=== PATIENT | female | born 1995 | race Two or more races ===

== ENCOUNTER 2019-04-21 14:49 | Emergency (ER) | payer OTHER ==
[~2019-04-21] VITALS: Ht 160 cm; Wt 47.6 kg
[2019-04-21] MEDS ORDERED: JUNEL 1 MG-201 EACH PO (15:34)
== END 2019-04-21 17:15 | disposition home or self-care (01) ==
LOC: ER 14:49
DX: J31.2 Chronic pharyngitis (principal)

== ENCOUNTER 2021-04-27 09:00 | Outpatient (CLI) | payer OTHER ==
[~2021-04-27 09:00] MED LIST: JUNEL 1 MG-201 EACH PO
== END 2021-04-27 09:30 | disposition home or self-care (01) ==
LOC: PPH VACUNA 09:00
PROVIDERS: ATTEND Emergency Medicine Pediatric Emergency Medicine
DX: Z23 Encounter for immunization (principal)

== ENCOUNTER 2021-06-23 10:20 | Outpatient (CLI) | payer OTHER | END 2021-06-23 10:32 | disposition home or self-care (01) | LOC: SONOGRAMA 10:20 | PROVIDERS: ATTEND Obstetrics & Gynecology | DX: N60.12 Diffuse cystic mastopathy of left breast (principal); N64.59 Other signs and symptoms in breast ==

== ENCOUNTER 2021-08-14 12:57 | Outpatient (CLI) | payer OTHER | END 2021-08-14 13:21 | disposition home or self-care (01) | LOC: SONOGRAMA 12:57 | PROVIDERS: ATTEND Surgery | DX: N60.11 Diffuse cystic mastopathy of right breast (principal); N60.12 Diffuse cystic mastopathy of left breast ==

== ENCOUNTER 2024-07-17 12:22 | Outpatient (CLI) | payer OTHER | END 2024-07-17 12:35 | disposition home or self-care (01) | LOC: RAD 12:22 | DX: M54.2 Cervicalgia (principal); M54.51 Vertebrogenic low back pain; R10.2 Pelvic and perineal pain ==

== ENCOUNTER → 2025-02-01 | Outpatient (CLI) | payer OTHER | END | disposition home or self-care (01) | LOC: SONOGRAMA 14:49 | PROVIDERS: ATTEND Plastic Surgery | DX: M67.441 Ganglion, right hand (principal) ==

== ENCOUNTER 2025-05-28 18:23 | Emergency (ER) | payer OTHER ==
[~2025-05-28] VITALS: Ht 160 cm; Wt 47.2 kg
[2025-05-28] MEDS ORDERED: ONDANSETRON HCL 2 MG/ML VIAL IV ONE (19:15)
[2025-05-28] MEDS ORDERED: FAMOTIDINE/PF 20 MG/2 ML VIAL IV ONE (19:15)
[2025-05-28] MEDS ORDERED: GUAIFEN/DEXTROMETHORPHAN/PE 10 ML BLIST.PACK PO ONE (19:15)
[2025-05-28] MEDS ORDERED: 0.9 % SODIUM CHLORIDE 1,000 ML IV ONE (19:15)
[2025-05-28 20:20] LABS: BASO % 0.3 % (0.1-1.2); EOS # 0.00 (0.04-0.54); EOS % 0.0 % (0.7-7.0); LYMPH # 0.25 (1.18-3.74); LYMPH % 2.3 % (19.3-53.1); MEAN PLATELET VOLUME 10.20 fl (9.4-12.4); MONO # 0.36 (0.24-0.82); MONO % 3.2 % (4.7-12.5); NEUT # 10.43 (1.56-6.13); NEUT % 93.9 % (34.0-71.1); RED CELL DISTRIBUTION WIDTH 12.3 % (11.6-14.4)
[2025-05-28 20:53] LABS: ALT/SGPT 18.0 U/L (12-78); AST/SGOT 9.0 U/L (15-37); BILIRUBIN TOTAL 1.26 mg/dL (0.3-1.2); BUN CREA RATIO 9.0 (7.0-25.0); CREATININE SERUM 0.76 mg/dL (0.55-1.02); GFR 89.36; GLOBULINA 4.0 G/DL (2.4-3.5); GLUCOSE FASTING 115.0 mg/dL (65-100); OSMOLALITY SERUM 276.0 MOSM/KG (275-295)
[2025-05-28 21:37] LABS: COVID-19 AG NEGATIVE (NEGATIVE)
[2025-05-28] MEDS ORDERED: ACETAMINOPHEN500 M1 PO (23:37)
[2025-05-28] MEDS ORDERED: PEPCID AC20 MG PO (23:37)
[2025-05-28] MEDS ORDERED: GILTUSS COUGH-118 M1 PO (23:37)
[2025-05-28] MEDS ORDERED: ZOFRAN8 MG PO (23:37)
== END 2025-05-29 01:03 | disposition home or self-care (01) ==
LOC: ER 18:24
PROVIDERS: Preventive Medicine Public Health & General Preventive Medicine
DX: B34.8 Other viral infections of unspecified site (principal); K52.89 Other specified noninfective gastroenteritis and colitis; Z20.822 Contact with and (suspected) exposure to COVID-19